=== PATIENT | male | born 1980 | race Caucasian/White ===

== ENCOUNTER 2025-03-18 13:27 | Emergency (ER) | payer OTHER, SELFPAY ==
[2025-03-18 13:39] VITALS: BP 132/90; PULSE 92; RESP 15; TEMP 36.6; O2SAT 98; BMI 20.9
--- NOTE | 2025-03-18 15:52 | ECG_ITS ---
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 Measurements Intervals [place] Rate: 84 P: 79 [place]: 136 QRS: -54 QRSD: 99 T: 88 QT: 347 QTc: 410 Interpretive Statements SINUS RHYTHM INCOMPLETE RIGHT BUNDLE BRANCH BLOCK [90+ ms QRS DURATION, TERMINAL R IN V1/V2, 40+ ms S IN I/aVL/V4/V5/V6] LEFT ANTERIOR FASCICULAR BLOCK [QRS AXIS <= -45, QR IN I, RS IN II] SEPTAL MYOCARDIAL INFARCTION , OF INDETERMINATE AGE [40+ ms Q WAVE IN V1/V2] No previous ECG available for comparison Electronically Signed On 03-19-2025 10:22:37 CDT by Fabian Gomez M.D. [id number] [id number]
== END 2025-03-18 14:32 | disposition left against medical advice (07) ==
PROVIDERS: Emergency Provider Family Medicine
DX: I45.4 Nonspecific intraventricular block (principal); I21.9 Acute myocardial infarction, unspecified
CPT/HCPCS: 93005

== ENCOUNTER 2025-03-21 10:02 | Emergency (ER) | payer OTHER, SELFPAY ==
[2025-03-21] VITALS (38 sets, daily range): BP systolic 108–137; BP diastolic 78–101; PULSE 59–89; RESP 12–25; TEMP 36.6; O2SAT 92–100; BMI 21.6
--- NOTE | 2025-03-21 10:22 | XR_ITS ---
WS: [id number] XR chest 1V portable [id number] REASON FOR EXAM: dyspnea/cough FINDINGS: Normal mediastinum and thoracic aorta. Normal heart size. Minimal calcified granulomatous disease bilaterally. No acute pulmonary parenchymal or pleural abnormality. Old healed rib fracture on the left. XR/XR chest 1V portable [id number] IMPRESSION: No acute chest abnormality.
--- NOTE | 2025-03-21 10:22 | CT_ITS ---
WS: [id number] CT ABDOMEN PELVIS TECHNIQUE: Contrast-enhanced CT of the abdomen and pelvis with coronal and sagittal reformatted images. CLINICAL INFORMATION: abd pain COMPARISON: None. DLP: 460.[address] scans at [facility] use at least one of these dose optimization techniques: automated exposure control; mA and/or kV adjustment per patient size (includes targeted exams where dose is matched to clinical indication); or iterative reconstruction. FINDINGS: Fatty liver. Hepatomegaly. Portal vein and splenic vein are patent. Adrenal glands are normal. Normal renal parenchymal enhancement. No hydronephrosis. Normal caliber abdominal aorta. Aortic calcification. Tiny fat-containing umbilical hernia. Urine distended bladder. Prostate calcification. A few small nodules in the RIGHT lower lobe. The largest measures 6 mm. Normal pancreas. Normal adrenal glands. Normal renal parenchymal enhancement. No hydronephrosis. Small esophageal hiatal hernia. Air-fluid level in the stomach. Mild gastric wall thickening can be seen with gastritis. No evidence of small or large bowel obstruction. Normal sigmoid colon. Normal appendix. Celiac and SMA are patent. No other acute findings. CT/CT abdomen pelvis w con* [id number] IMPRESSION: 1. Hepatomegaly with fatty liver. 2. Mild gastric wall thickening can be seen with gastritis. Small esophageal h iatal hernia. 3. Urine distended bladder. 4. No other acute findings. 5. A few small nodules in the RIGHT lower lobe the largest measuring 6 mm.
--- NOTE | 2025-03-21 10:26 | ED_ITS ---
HPI - Abdominal Pain 2 General: Chief Complaint: Abdominal Pain Stated Complaint: upper abd pain, headache, dizzy Time Seen by Provider: 03/21/25 10:09 History of Present Illness: 44-year-old male presents emergency room complaining of initially abdominal pain that began last night as a question further came out that he had had large amounts of bright red blood per rectum he did been seen in the clinic directed to the ER he came to the ER and left without being seen because he got upset about the wait. He did not pursue any further evaluation until returning today states he has not had any further blood in the stool but he has worsening abdominal pain. Patient admits to drinking probably around 12 pack/day for the last 15 years he also has a 1-1/2 pack a day smoker in the same timeframe. He denies any hematemesis or coffee-ground emesis. Associated Symptoms: Denies chills, dysuria and fever(s) Related Data Previous Rx's ?Medication ?Instructions ?Recorded pantoprazole 40 mg tablet,delayed 40 mg PO BID #40 tab s 03/21/25 release (Protonix) Allergies Allergy/AdvReac Type Severity Reaction Status Date / Time No Known Allergies Allergy Unverified 03/18/25 12:41 Review of Systems 2 Const: Denies: fever(s) or chills Card: Denies: chest pain Resp: Denies: dyspnea GI: Denies: abdominal pain : Denies: dysuria, urinary frequency or urinary urgency Musc: Denies: neck pain or back pain Skin/Breast: Denies: rash PFSH ED 2 PFSH: Social History Smoking and tobacco/nicotine status: current every day tobacco/nicotine user Physical Exam 2 Const: GENERAL APPEARANCE: cooperative ORIENTATION/CONSCIOUSNESS: Yes awake, Yes oriented to person, Yes oriented to place and Yes oriented to time HENMT: COMMON NORMALS: normocephalic, atraumatic and hearing grossly normal bilaterally HEAD & SCALP: normocephalic and atraumatic Resp: COMMON NORMALS: normal respiratory effort, No retractions, No use of accessory muscles and clear to auscultation bilaterally AUSCULTATION: clear to auscultation bilaterally Cardio: COMMON NORMALS: regular rate, regular rhythm and No murmurs present (Cardio) RATE: regular rate RHYTHM: regular rhythm GI: COMMON NORMALS: No hepatosplenomegaly present AUSCULTATION: Yes Hypoactive bowel sounds present PALPATION: Yes Tenderness to palpation present (GI) (Diffuse), No Guarding due to palpation present (GI) and Yes No hepatosplenomegaly present Extremity: COMMON NORMALS: normal to inspection, capillary refill normal, no clubbing, cyanosis or edema, no calf tenderness and no pedal edema Neuro: SENSORIUM/ORIENTATION: Yes oriented to person, Yes oriented to place and Yes oriented to time Skin: COMMON NORMALS: no rashes or lesions noted GENERAL SKIN EXAM: no rashes or lesions noted Course 2 Vital Signs: Vital signs: Vital Signs Temperature 97.8 F 03/21/25 10:04 Pulse Rate 80 03/21/25 13:34 Respiratory Rate 18 03/21/25 13:30 Blood Pressure 120/78 03/21/25 13:34 Pulse Oximetry 96 03/21/25 13:34 Oxygen Delivery Me thod Room Air 03/21/25 11:30 MDM - Abdominal Pain Medical Decision Making Patient has intermittent hematochezia for years has not had follow-up ports hemoglobins been stable. Think his acute abdominal pain today is from alcoholic gastritis CT did not show any other acute pathology discharge patient home started on pantoprazole advise abstinence from alcohol return for further problems. Lipase minimally elevated no findings of acute pancreatitis on CT Lab Data 03/21/25 10:22 03/21/25 10:22 Labs/Radiology: Radiology Impressions Abdomen/Pelvis CT 03/21/25 10:22 IMPRESSION: 1. Hepatomegaly with fatty liver. 2. Mild gastric wall thickening can be seen with gastritis. Small esophageal hiatal hernia. 3. Urine distended bladder. 4. No other acute findings. 5. A few small nodules in the RIGHT lower lobe the largest measuring 6 mm. Chest X-Ray 03/21/25 10:22 IMPRESSION: No acute chest abnormality. Laboratory Results WBC 4.08 10^3/uL (3.29-11.43) 03/21/25 10:22 RBC 4.38 10^6/uL (3.85-5.65) 03/21/25 10:22 Hgb 13.20 g/dL (11.27-16.99) 03/21/25 10:22 Hct 39.7 % (37-53) 03/21/25 10:22 MCV 90.6 fl (82-101) 03/21/25 10:22 MCH 30.1 pg (27-33) 03/21/25 10:22 MCHC 33.2 g/dL (30-55) 03/21/25 10:22 RDW 18.6 % (12.1-15.1) H 03/21/25 10:22 Plt Count 80 10^3/cmm (157-399) L 03/21/25 10:22 MPV 10.5 fL (7.4-10.4) H 03/21/25 10:22 Neut % (Auto) 48.1 % 03/21/25 10:22 Lymph % (Auto) 40.4 % 03/21/25 10:22 [place] % (Auto) 7.1 % 03/21/25 10:22 Eos % (Auto) 3.4 % 03/21/25 10:22 Baso % (Auto) 0.5 % 03/21/25 10:22 Neut # (Auto) 1.96 10^3/uL (1.8-7.7) 03/21/25 10:22 Lymph # (Auto) 1.7 10^3/uL (0.8-4.8) 03/21/25 10:22 [place] # (Auto) 0.3 10^3/uL (0.2-0.9) 03/21/25 10:22 Eos # (Auto) 0.1 10^3/uL (0.0-0.8) 03/21/25 10:22 Baso # (Auto) 0.0 10^3/uL (0.0-0.1) 03/21/25 10:22 Nucleated RBC % (auto) 0 % 03/21/25 10:22 Nucleated RBCs # 0.0 /100WBC 03/21/25 10:22 PT 11.80 SECONDS (12.1-14.9) L 03/21/25 10:22 INR 0.81 (0.8-1.2) 03/21/25 10:22 Sodium 134 mmol/L (136-145) L 03/21/25 10:22 Potassium 4.4 mmol/L (3.5-5.1) 03/21/25 10:22 Chloride 96 mmol/L (98-107) L 03/21/25 10:22 Carbon Dioxide 21 mmol/L (22-29) L 03/21/25 10:22 Anion Gap 21.4 (5-19) H 03/21/25 10:22 BUN 3 mg/dL (6-20) L 03/21/25 10:22 Creatinine 0.5 mg/dL (0.7-1.2) L 03/21/25 10:22 GFR Calculation 179.8 mL/min (90-130) H 03/21/25 10:22 Glucose 201 mg/dL (65-115) H 03/21/25 10:22 Calculated Osmolality 280 mOsm/kg (285-295) L 03/21/25 10:22 Calcium 8.7 mg/dL (8.5-10.5) 03/21/25 10:22 Total Bilirubin 0.2 mg/dL (0.15-1.2) 03/21/25 10:22 AST 119 U/L (0-40) H 03/21/25 10:22 ALT 78 U/L (0-41) H 03/21/25 10:22 Alkaline Phosphatase 109 U/L (40-130) 03/21/25 10:22 Ammonia 22 umol/L (16-60) 03/21/25 10:22 Creatine Kinase 170 U/L (39-308) 03/21/25 10:22 Total Protein 7.7 g/dL (6.6-8.7) 03/21/25 10:22 Albumin 4.0 g/dL (3.5-5.2) 03/21/25 10:22 Globulin 3.7 g/dL (1.3-4.6) 03/21/25 10:22 Lipase 74 U/L (13-60) H 03/21/25 10:22 Urine Color Yellow (Yellow) 03/21/25 10:33 Urine Appearance Clear (CLEAR) 03/21/25 10:33 Urine pH 6.5 (5-7) 03/21/25 10:33 Ur Specific [place] 1.004 (1.005-1.030) L 03/21/25 10:33 Urine Protein Negative (Negative) 03/21/25 10:33 Urine Glucose (UA) Negative (Normal) 03/21/25 10:33 Urine Ketones Negative (Negative) 03/21/25 10:33 Urine Blood Negative (Negative) 03/21/25 10:33 Urine Nitrate Negative (Negative) 03/21/25 10:33 Urine Bilirubin Negative (Negative) 03/21/25 10:33 Urine Urobilinogen 1.0 mg/dL (Negative) 03/21/25 10:33 Ur Leukocyte Esterase Negative (Negative) 03/21/25 10:33 Urine RBC 0-2 /hpf (0-2) 03/21/25 10:33 Urine WBC 0-5 /hpf (0-5) 03/21/25 10:33 Ur Squamous Epith Cells 0-5 /hpf (0-5) 03/21/25 10:33 Amorphous Sediment Not Reportable 03/21/25 10:33 Urine Bacteria None seen /hpf (NONE) 03/21/25 10:33 Hyaline Casts 0-4 /lpf H 03/21/25 10:33 All radiology interpretation(s) finalized by discharge Discharge Plan Discharge Patient Disposition: Home Clinical Impression: Alcoholic gastritis, Hematochezia Condition: Stable Prescriptions: New pantoprazole [Protonix] 40 mg tablet,delayed release (DR/EC) 40 mg PO BID Qty: 40 0RF Rx Instructions: 1 p.o. twice daily x 10 days then 1 p.o. daily Discharge Orders: Discharge ED (Routine); Ordered 03/21/25 Ordered By: Darryl Ramirez Discharge Diet: Clear Liquid Discharge Activity: Increase activity as tolerated Patient Instructions: Abuse of Alcohol (ED), Opioid Safety, Pain Management Activity Restrictions/Additional Instructions: Thank you for choosing [facility] for your healthcare needs today. It is very important that you follow up as instructed or that you return to the Emergency Department should you have concerns or if your condition changes or worsens in any way. You are seen in the emergency room with complaints of stomach upset and pain as well as intermittent blood in the stool. Your liver enzymes and pancreas enzymes are slightly elevated but they are not show any acute pancreatitis on the CT. The discomfort in your stomach is caused from chronic alcohol use recommend you decrease your alcohol use. Will also start you on Protonix 40 mg 1 pill twice a day recommend clear liquid diet for the next 24 to 48 hours and advance as tolerated. You also mentioned having bright red blood in the stool intermittently for years. 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
[2025-03-21 10:32] LABS: Basophils % 0.5 %; Eosinophils # 0.1 10^3/uL (0.0-0.8); Eosinophils % 3.4 %; Hematocrit 39.7 % (37-53); Lymphocytes # 1.7 10^3/uL (0.8-4.8); Lymphocytes % 40.4 %; Mean Corpuscular HGB Conc 33.2 g/dL (30-55); Mean Corpuscular Hemoglobin 30.1 pg (27-33); Mean Corpuscular Volume 90.6 fl (82-101); Mean Platelet Volume 10.5 fL (7.4-10.4); Monocytes # 0.3 10^3/uL (0.2-0.9); Monocytes % 7.1 %; Neutrophils # 1.96 10^3/uL (1.8-7.7); Neutrophils % 48.1 %; Nucleated Red Blood Cells % 0 %; Platelet Count 80 10^3/cmm (157-399); Red Blood Count 4.38 10^6/uL (3.85-5.65); Red Cell Distribution Width 18.6 % (12.1-15.1); White Blood Count 4.08 10^3/uL (3.29-11.43)
[2025-03-21] MEDS: sodium chloride 0.9% 1,000 ML 999 ML IV (10:34)
[2025-03-21] MEDS: pantoprazole 40 mg SDV 80 MG IVP (10:35)
[2025-03-21 10:52] LABS: Bilirubin Urine Negative (Negative); Blood Urine Negative (Negative); Glucose Urine UA Negative (Normal); Ketones Urine Negative (Negative); Leukocyte Esterase Urine Negative (Negative); Nitrate Urine Negative (Negative); Protein Urine Negative (Negative); Specific Gravity, Urine 1.004 (1.005-1.030); Urine Appearance Clear (CLEAR); Urine Color Yellow (Yellow); pH Urine 6.5 (5-7)
[2025-03-21 10:53] LABS: Ammonia 22 umol/L (16-60)
[2025-03-21 10:56] LABS: Alanine Aminotransferase 78 U/L (0-41); Alkaline Phosphatase 109 U/L (40-130); Blood Urea Nitrogen 3 mg/dL (6-20); Calcium 8.7 mg/dL (8.5-10.5); Carbon Dioxide 21 mmol/L (22-29); Chloride 96 mmol/L (98-107); Creatine Phosphokinase 170 U/L (39-308); Creatinine Clr Calc Pharmacy 176.2883; Globulin 3.7 g/dL (1.3-4.6); Glomerular Filtration Rate 179.8 mL/min (90-130); Glucose 201 mg/dL (65-115); INR 0.81 (0.8-1.2); Lipase 74 U/L (13-60); Osmolality Calculated 280 mOsm/kg (285-295); Sodium 134 mmol/L (136-145); Total Bilirubin 0.2 mg/dL (0.15-1.2); Total Protein 7.7 g/dL (6.6-8.7)
[2025-03-21 10:58] LABS: Add Urine Microscopic? YES; Bacteria Urine None Seen /hpf; Hyaline Casts Urine 0-4 /lpf; RBC Urine 0-2 /hpf (0-2); Squamous Epithelial Cell Urine 0-5 /hpf (0-5); WBC Urine 0-5 /hpf (0-5)
[2025-03-21 11:03] LABS: Anion Gap 21.4 (5-19); Aspartate Amino Transferase 119 U/L (0-40); Potassium 4.4 mmol/L (3.5-5.1)
[2025-03-21] MEDS: iohexol 350 mg/mL 500 mL Btl (per mL) IV (11:10)
--- NOTE | 2025-03-21 15:52 | DCPLANNER ---
Message sent to General surgery-
== END 2025-03-21 13:35 | disposition home or self-care (01) ==
PROVIDERS: Emergency Provider Family Medicine
DX: K92.1 Melena (principal); K29.21 Alcoholic gastritis with bleeding; Z72.0 Tobacco use
CPT/HCPCS: 36415; 71045; 74177; 80053; 81001; 82140; 82550; 83690; 85025; 85610; 96361; 96374; 99285; J2470; J7030

== ENCOUNTER → 2025-05-01 11:39 | Outpatient (BNVA) | payer OTHER, SELFPAY | PROVIDERS: Visit Provider Nurse Practitioner Family | DX: M25.562 Pain in left knee (principal) | CPT/HCPCS: 73562; 80053; 80061; 82150; 83690; 84443; 85025 ==

== ENCOUNTER 2025-05-22 12:34 | Outpatient (CLI) | payer OTHER, SELFPAY | END 2025-05-22 12:35 | disposition home or self-care (01) | LOC: LAB 05-23 08:18 | PROVIDERS: PCP Nurse Practitioner Family; Visit Provider Nurse Practitioner Family | DX: R79.89 Other specified abnormal findings of blood chemistry (principal) | CPT/HCPCS: 80053; 83690; 85025 ==

== ENCOUNTER → 2025-06-04 10:42 | Outpatient (BNVA) | payer OTHER, SELFPAY | PROVIDERS: PCP Nurse Practitioner Family; Visit Provider Specialist | DX: S83.207A Unspecified tear of unspecified meniscus, current injury, left knee, initial encounter (principal); G89.29 Other chronic pain; X58.XXXA Exposure to other specified factors, initial encounter | CPT/HCPCS: 73560; 73565 ==

== ENCOUNTER 2025-06-12 08:52 | Outpatient (CLI) | payer OTHER, SELFPAY ==
--- NOTE | 2025-06-12 08:45 | MR_ITS ---
WS: [id number] MRI LEFT KNEE HISTORY: left knee pain COMPARISON: 06/04/2025. Study is compromised by motion artifact. Patient was unable to remain still for this examination. Anterior cruciate ligament: Intact. Posterior cruciate ligament: Intact. Medial collateral ligament: Difficult to evaluate due to motion artifact. There is no full-thickness tear. Posterior lateral corner structures: Limited but no full-thickness tear. Medial menisci: Intrasubstance degeneration in the posterior horn. No tears. Lateral meniscus: Intact. Normal signal, size and shape. Extensor mechanism: Distal quadriceps tendon and patellar tendons are intact. Fluid and soft tissue: No joint effusion. No Bonds's cyst. Osseous and articular structures: Patellofemoral compartment: Normal. Medial compartment: Mild narrowing of the medial compartment. No marrow edema. Cartilage is well-preserved. Lateral compartment: Mild narrowing of the lateral compartment. No marrow edema or fracture. Cartilage is well preserved. Small amount of edema in the infrapatellar fat pad. MR/MR knee LT wo con* [id number] IMPRESSION: 1. Study is compromised by patient motion. 2. Intrasubstance degeneration in the posterior horn medial meniscus but no te ar identified. 3. Small amount of infrapatellar fat pad edema. 4. No joint effusion. 5. No marrow edema. 6. ACL is intact.
== END 2025-06-12 08:53 | disposition home or self-care (01) ==
PROVIDERS: PCP Nurse Practitioner Family; Visit Provider Specialist
DX: M25.562 Pain in left knee (principal)
CPT/HCPCS: 73721

== ENCOUNTER 2025-06-15 05:00 | Outpatient (RCR) | payer OTHER, SELFPAY | END 2025-07-15 23:59 | disposition home or self-care (01) | LOC: TPT 05:00 | PROVIDERS: PCP Nurse Practitioner Family; Visit Provider Specialist | DX: M25.562 Pain in left knee (principal) | CPT/HCPCS: 97110; 97161 ==

== ENCOUNTER 2025-06-26 09:55 | Emergency (ER) | payer OTHER, SELFPAY ==
--- NOTE | 2025-06-26 09:59 | XRR_ITS ---
PROCEDURE INFORMATION: Exam: XR Chest Exam date and time: 06/26/2025 10:10 AM Age: 44 years old Clinical indication: Other: Seizure TECHNIQUE: Imaging protocol: Radiologic exam of the chest. Views: 1 view. COMPARISON: CR XR chest 1V portable [id number] 03/21/2025 10:46 AM FINDINGS: Lungs: Unremarkable. No consolidation. Pleural spaces: Unremarkable. No pleural effusion. No pneumothorax. Heart/Mediastinum: Unremarkable. No cardiomegaly. Bones/joints: Unremarkable. XR/XR chest 1V portable [id number] IMPRESSION: No acute cardiopulmonary process.
--- NOTE | 2025-06-26 09:59 | CT_ITS ---
WS: [id number] CT HEAD TECHNIQUE: Noncontrast CT of the head obtained from the skullbase to the vertex. CLINICAL INFORMATION: seizure COMPARISON: None. DLP: 1189.[address] scans at [facility] use at least one of these dose optimization techniques: automated exposure control; mA and/or kV adjustment per patient size (includes targeted exams where dose is matched to clinical indication); or iterative reconstruction. FINDINGS: No evidence of intracranial hemorrhage or mass effect. Ventricular system and basal cisterns are patent. Mild parenchymal volume loss. No extra-axial fluid collections. No evidence of mass or mass effect. Normal ayala-white differentiation. Paranasal sinuses and mastoid air cells are well aerated. .Normal visualized soft tissues. CT/CT head wo con* [id number] IMPRESSION: 1. No evidence of intracranial hemorrhage or mass effect. 2. No acute intracranial findings.
[2025-06-26 10:02] VITALS: BP 119/97; PULSE 103; RESP 18; TEMP 36.4; O2SAT 98
[2025-06-26 10:14] LABS: Hematocrit 40.7 % (37-53); Hemoglobin 13.60 g/dL (11.27-16.99); Mean Corpuscular HGB Conc 33.4 g/dL (30-55); Mean Corpuscular Hemoglobin 29.6 pg (27-33); Mean Corpuscular Volume 88.7 fl (82-101); Nucleated Red Blood Cells % 0 %; Platelet Count 41 10^3/cmm (157-399); Red Blood Count 4.59 10^6/uL (3.85-5.65); White Blood Count 4.30 10^3/uL (3.29-11.43)
--- NOTE | 2025-06-26 10:15 | W.ED.SEIZURE ---
HPI - Seizure General: Chief Complaint: Seizure Stated Complaint: seizure Time Seen by Provider: 06/26/25 09:59 Source: patient Mode of arrival: EMS Limitations: no limitations History of Present Illness: HPI Narrative: Patient is a 44-year-old male here via EMS from his primary care office after he was witnessed to have a seizure in the waiting room. Patient states he has a longstanding alcoholic and quit drinking approximately 48 hours ago. He states he has never had an alcoholic withdrawal seizures. No previous history of epilepsy. Patient was given Versed and Haldol en route due to postictal agitation. During my examination with patient he is alert and oriented. He states past medical history is positive for gastric ulcers that he treats with pantoprazole. He states he has reached out to [facility] but they will not have a bed available until July. He has no physical complaints at time of my examination. No reported injury sustained during his seizure. MD complaint: seizure Onset (ago): hour(s) Description of Episode: tonic-clonic movement -: minutes(s) Witnessed: Yes - by Bystander Trauma: No Seizure History: No Place: medical office Possible Precipitating Event: alcohol withdrawal Associated symptoms: Reports no associated symptoms; Deny chest pain, chills, fever(s), malaise or syncope Treatments prior to arrival: other (versed/haldol by EMS) Related Data Home Medications ?Medication ?Instructions ?Recorded ?Confirmed [id number] 250 2 tab PO Q6H PRN Pain 06/26/25 06/26/25 mg-250 mg-65 mg tablet (Excedrin Migraine) Previous Rx's ?Medication ?Instructions ?Recorded pantoprazole 40 mg tablet,delayed 40 mg PO DAILY #90 tabs 05/01/25 release (Protonix) chlordiazepoxide HCl 25 mg capsule See Rx Instructions .Route 06/26/25 .COMPLEX #27 caps Allergies Allergy/AdvReac Type Severity Reaction Status Date / Time No Known Allergies Allergy Verified 06/26/25 09:05 Review of Systems Const: Denies: fever(s), chills, body aches, fatigue or malaise Eyes: Denies: change in vision, blurry vision, photophobia, floaters or seeing flashes Card: Denies: chest pain, palpitations, lightheadedness, syncope or pre-syncope Resp: Denies: dyspnea GI: Denies: abdominal pain, nausea, vomiting or diarrhea Musc: Denies: neck pain, back pain, extremity pain, extremity swelling or joint swelling Skin/Breast: Denies: rash Neuro: Reports: seizure-like activity; Denies: headache(s), numbness in extremities, weakness in extremities, sensory changes or dizziness PFS ED PFSH: Social History Smoking and tobacco/nicotine status: current every day tobacco/nicotine user Alcohol intake: current Alcohol intake frequency: 0-2 Drinks per Day Alcohol type: beer Substance/Drug Use: never Adopted: No Caregiver/support person: No Lives independently: Yes Household members: none Housing: House Marital status: Number of children: 4 Highest education level completed: 11th Grade service: No Current occupational status: employed Physical Exam Const: COMMON NORMALS: no acute distress, average body habitus, patient oriented x3, no limitations, healthy appearing, alert and well nourished GENERAL APPEARANCE: cooperative ORIENTATION/CONSCIOUSNESS: Yes awake, Yes oriented to person, Yes oriented to place and Yes oriented to time HENMT: COMMON NORMALS: normocephalic and atraumatic HEAD & SCALP: normal to inspection, normocephalic and atraumatic FACE & SINUS: normal facial exam Eye: GENERAL EYE: appearance normal, both eyes and all related structures Neck/C-Spine: COMMON NORMALS: full ROM CERVICAL SPINE: No Cervical spine tenderness Resp: COMMON NORMALS: normal respiratory effort and clear to auscultation bilaterally AUSCULTATION: clear to auscultation bilaterally Cardio: COMMON NORMALS: regular rate and regular rhythm RATE: regular rate RHYTHM: regular rhythm GI: COMMON NORMALS: Normal to inspection, nondistended, normoactive bowel sounds present, Soft to palpation, non-tender, No hepatosplenomegaly present and no masses PALPATION: Yes Soft to palpation and Yes No hepatosplenomegaly present Back/Pelvis: COMMON NORMALS: thoracic and lumbar spine normal to inspection and no thoracic nor lumbar tenderness Extremity: GENERAL: Yes normal exam except as noted Neuro: FABRIZIO COMA SCALE: document GCS findings Fabrizio coma scale eye opening: Spontaneous [place] coma scale verbal response: Orientated [place] coma scale motor response: Obey commands Fabrizio coma scale total score: 15 COMMON NORMALS: patient oriented x3, CN's II-XII intact bilaterally, moves all extremities, no focal motor deficits and no sensory deficits noted SENSORIUM/ORIENTATION: Yes alert, Yes oriented to person, Yes oriented to place and Yes oriented to time Course Vital Signs: Vital signs: Vital Signs Temperature 97.6 F 06/26/25 10:02 Pulse Rate 69 06/26/25 11:39 Respiratory Rate 16 06/26/25 11:39 Blood Pressure 140/97 06/26/25 11:39 Pulse Oximetry 93 06/26/25 11:39 Oxygen Delivery Me thod Room Air 06/26/25 11:17 MDM - Seizure MDM Narrative Medical decision making narrative: Patient here following alcoholic withdrawal seizure. Vital signs have been stable. He has been alert and oriented while here and has not had any further seizures. He has been fairly asymptomatic during his stay. Lab work consistent with longstanding alcohol abuse with thrombocytopenia, elevated LFTs, and hyponatremia. Discussed case with Dr. Randle who feels he can most likely go home on Librium. Recommend follow-up with primary care and continue plan for [facility] when a bed becomes available. Return to ED precautions discussed with patient/family who verbalized understanding. Lab Data 06/26/25 10:05 06/26/25 10:05 Labs: Radiology Impressions Chest X-Ray 06/26/25 09:59 IMPRESSION: No acute cardiopulmonary process. Head CT 06/26/25 09:59 IMPRESSION: 1. No evidence of intracranial hemorrhage or mass effect. 2. No acute intracranial findings. Laboratory Results WBC 4.30 10^3/uL (3.29-11.43) 06/26/25 10:05 RBC 4.59 10^6/uL (3.85-5.65) 06/26/25 10:05 Hgb 13.60 g/dL (11.27-16.99) 06/26/25 10:05 Hct 40.7 % (37-53) 06/26/25 10:05 MCV 88.7 fl (82-101) 06/26/25 10:05 MCH 29.6 pg (27-33) 06/26/25 10:05 MCHC 33.4 g/dL (30-55) 06/26/25 10:05 RDW 19.0 % (12.1-15.1) H 06/26/25 10:05 Plt Count 41 10^3/cmm (157-399) L 06/26/25 10:05 MPV 11.4 fL (7.4-10.4) H 06/26/25 10:05 Neut % (Auto) 64.3 % 06/26/25 10:05 Lymph % (Auto) 26.0 % 06/26/25 10:05 [place] % (Auto) 7.4 % 06/26/25 10:05 Eos % (Auto) 1.4 % 06/26/25 10:05 Baso % (Auto) 0.2 % 06/26/25 10:05 Neut # (Auto) 2.76 10^3/uL (1.8-7.7) 06/26/25 10:05 Lymph # (Auto) 1.1 10^3/uL (0.8-4.8) 06/26/25 10:05 [place] # (Auto) 0.3 10^3/uL (0.2-0.9) 06/26/25 10:05 Eos # (Auto) 0.1 10^3/uL (0.0-0.8) 06/26/25 10:05 Baso # (Auto) 0.0 10^3/uL (0.0-0.1) 06/26/25 10:05 Nucleated RBC % (auto) 0 % 06/26/25 10:05 Nucleated RBCs # 0.0 /100WBC 06/26/25 10:05 Sodium 130 mmol/L (136-145) L 06/26/25 10:05 Potassium 3.6 mmol/L (3.5-5.1) 06/26/25 10:05 Chloride 91 mmol/L (98-107) L 06/26/25 10:05 Carbon Dioxide 17 mmol/L (22-29) L 06/26/25 10:05 Anion Gap 25.6 (5-19) H 06/26/25 10:05 BUN 4 mg/dL (6-20) L 06/26/25 10:05 Creatinine 0.9 mg/dL (0.7-1.2) 06/26/25 10:05 GFR Calculation 91.3 mL/min (90-130) 06/26/25 10:05 Glucose 94 mg/dL (65-115) 06/26/25 10:05 Calculated Osmolality 267 mOsm/kg (285-295) L 06/26/25 10:05 Calcium 9.2 mg/dL (8.5-10.5) 06/26/25 10:05 Total Bilirubin 0.6 mg/dL (0.15-1.2) 06/26/25 10:05 AST 97 U/L (0-40) H 06/26/25 10:05 ALT 63 U/L (0-41) H 06/26/25 10:05 Alkaline Phosphatase 159 U/L (40-130) H 06/26/25 10:05 Creatine Kinase 88 U/L (39-308) 06/26/25 10:05 Total Protein 7.4 g/dL (6.6-8.7) 06/26/25 10:05 Albumin 4.0 g/dL (3.5-5.2) 06/26/25 10:05 Globulin 3.4 g/dL (1.3-4.6) 06/26/25 10:05 Ethyl Alcohol < 10 mg/dL (0-10) 06/26/25 10:05 All radiology interpretation(s) finalized by discharge Discharge Plan Discharge Patient Disposition: Home Clinical Impression: Alcohol withdrawal seizure Qualifiers: Complication of substance-induced condition: uncomplicated Qualified Code(s): F10.930 - Alcohol use, unspecified with withdrawal, uncomplicated Condition: Stable Prescriptions: New chlordiazepoxide HCl 25 mg capsule See Rx Instructions .ROUTE .COMPLEX Qty: 27 0RF Rx Instructions: Take 4 tabs q 6 hours on day 1. Take 2 tabs q 8 hours on day 2. Take 2 tabs q 12 hours on day 3. Take one tab daily on day 4. No Action pantoprazole [Protonix] 40 mg tablet,delayed release (DR/EC) 40 mg PO DAILY Qty: 90 1RF Rx Instructions: 1 p.o. twice daily x 10 days then 1 p.o. daily Excedrin Migraine 250-250-65 mg Tablet 2 tab PO Q6H PRN (Reason: Pain) Discharge Orders: Discharge ED (Routine); Ordered 06/26/25 Ordered By: Sanna Mandujano Referrals: Shasta Harris, ANNELIESE [Primary Care Provider, Family Practice] Patient Instructions: Alcohol Withdrawal (DC), Patient Portal & Bright Instructions Activity Restrictions/Additional Instructions: As we discussed, please fill your prescription for the Librium and begin immediately. Do not drink while taking this medication. Continue plan for outpatient rehabilitation through [facility] when a bed is available. As we discussed, you need to return to the emergency department for onset of severe tremors, hallucinations, agitation, intractable vomiting, severe chest pain/palpitations, any further seizures, or any other concerns you may have. 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
[2025-06-26 10:29] LABS: Alanine Aminotransferase 63 U/L (0-41); Albumin Level 4.0 g/dL (3.5-5.2); Alkaline Phosphatase 159 U/L (40-130); Anion Gap 25.6 (5-19); Aspartate Amino Transferase 97 U/L (0-40); Blood Urea Nitrogen 4 mg/dL (6-20); Calcium 9.2 mg/dL (8.5-10.5); Carbon Dioxide 17 mmol/L (22-29); Chloride 91 mmol/L (98-107); Globulin 3.4 g/dL (1.3-4.6); Glucose 94 mg/dL (65-115); Osmolality Calculated 267 mOsm/kg (285-295); Potassium 3.6 mmol/L (3.5-5.1); Sodium 130 mmol/L (136-145); Total Protein 7.4 g/dL (6.6-8.7)
[2025-06-26 10:30] LABS: Alcohol Level < 10 mg/dL (0-10)
[2025-06-26 10:43] LABS: Slide Review Slide Review Perform
[2025-06-26 11:17] VITALS: BP 140/97; PULSE 74; RESP 16; O2SAT 94
[2025-06-26 11:39] VITALS: BP 140/97; PULSE 69; RESP 16; O2SAT 93
== END 2025-06-26 11:46 | disposition home or self-care (01) ==
PROVIDERS: Emergency Provider Physician Assistant; PCP Nurse Practitioner Family
DX: F10.930 Alcohol use, unspecified with withdrawal, uncomplicated (principal); Z72.0 Tobacco use
CPT/HCPCS: 36415; 70450; 71045; 80053; 80307; 82550; 85025; 99284

== ENCOUNTER 2025-06-27 14:40 | Outpatient (CLI) | payer OTHER, SELFPAY | END 2025-06-27 14:41 | disposition home or self-care (01) | LOC: SPT 14:41 | PROVIDERS: PCP Nurse Practitioner Family; Visit Provider Specialist | DX: Z46.89 Encounter for fitting and adjustment of other specified devices (principal); M25.562 Pain in left knee | CPT/HCPCS: L1812 ==

== ENCOUNTER → 2025-07-05 10:19 | Outpatient (BNVA) | payer OTHER, SELFPAY | PROVIDERS: PCP Nurse Practitioner Family; Visit Provider Nurse Practitioner Family | DX: F10.939 Alcohol use, unspecified with withdrawal, unspecified (principal); R56.9 Unspecified convulsions | CPT/HCPCS: 80053; 82607; 82746; 85025 ==

== ENCOUNTER 2025-07-16 06:30 | Outpatient (RCR) | payer OTHER, SELFPAY | END 2025-08-14 23:59 | disposition home or self-care (01) | LOC: TPT 06:30 | PROVIDERS: PCP Nurse Practitioner Family; Visit Provider Specialist | DX: M25.562 Pain in left knee (principal) | CPT/HCPCS: 97110 ==